=== PATIENT | female | born 1985 | race Caucasian/White ===

== ENCOUNTER 2016-12-31 19:11 | Emergency (ER) | payer SELFPAY ==
--- NOTE | 2016-12-31 21:39 | DIAGNOSTIC IMAGING REPORT ---
PROCEDURE: ABDOMEN/PELVIS WITH CONTRAST CLINICAL INDICATION: ABDOMINAL PAIN TECHNIQUE: 125 ml of Isovue 300 were injected intravenously and axial images were obtained of the abdomen and pelvis with sagittal and coronal reformations. COMPARISON: None. FINDINGS: ABDOMEN: Clear lung bases. Normal sized heart. No hiatal hernia. The liver, gallbladder, adrenal glands, kidneys, pancreas and spleen are normal. The abdominal aorta is normal in its course and caliber. No atherosclerosis. There are no suspicious calcifications, retroperitoneal adenopathy or masses. The stomach , upper bowel loops, and mesentery are normal. Very small fat containing umbilical hernia. No free fluid or inflammation. PELVIS: Involuting dominant follicle on the right ovary. Trace amount of right britta ovarian fluid. The appendix and pelvic small bowel loops are normal. Moderately increased amount of semisolid stool in the colon and rectum. The uterus, urinary bladder, and pelvic vessels are normal. No adenopathy, or pelvic mass. Intact osseous structures. IMPRESSION: 1. Involuting right ovarian follicle with a trace amount of surrounding free fluid. 2. Moderate fecal retention. 3. No evidence of acute process. 4. Findings called to the emergency room. All CT scans at this facility use dose modulation, iterative reconstruction, and/or weight-based dosing when appropriate to reduce radiation dose to as low as reasonably achievable.
--- NOTE | 2016-12-31 21:58 | ED CLINICAL REPORT ---
Clinical Report - Physicians/Mid Levels [facility] [address] [place] [address] 12/31/2016 19:12 Patient: CLARA JIM Time Seen: 19:43; initial patient contact, initial documentation, patient care assumed. Arrived- By private vehicle. Historian- patient. HISTORY OF PRESENT ILLNESS Chief Complaint: ABDOMINAL PAIN. At its maximum, severity described as severe. When seen in the E.D., severity described as severe. Modifying factors. Not worsened by anything. Not relieved by anything. It is described as "pain" and cramping. No radiation. It is described as located in the right lower quadrant and left lower quadrant and in the lower abdomen. This started yesterday. No nausea, loss of appetite, vomiting or diarrhea. No additional abdominal pain. (says pain feels like she is going to have a baby). No recent travel. Similar symptoms previously: None. Recent medical care: The patient was seen recently at another facility in a clinic. ( pt was [facility], sent here for eval). REVIEW OF SYSTEMS No constipation, black stools, hematemesis, difficulty with urination or pain with urination. No urinary frequency, bloody stools, fever, chest pain or difficulty breathing. Currently : G 5. P 5. Last bowel movement- 3 days ago. All systems otherwise negative, except as recorded above. PAST HISTORY See nurses notes. PROBLEMS: Pneumonia. Dental Caries. --19:25 Jackson Ahumada, R.N. ADDITIONAL SURGERIES: Dilatation & Curettage. --19:25 Jackson Ahumada R.N. SOCIAL HISTORY Light tobacco smoker. Heavy alcohol use; consumes liquor daily. History of heavy drug use: methamphetamines, marijuana. No recent travel. Is a local resident. FAMILY HISTORY Negative. ADDITIONAL NOTES The nursing notes have been reviewed with agreement regarding the chief complaint, HPI, ROS, PMH and patient medications and allergies. PHYSICAL EXAM Vital Signs: 12/31/2016 19:17 BP: 141/93. HR: 92. RR: 19. O2 saturation: 100%. Temp: 97.7 F. Pain level now: 10/10. Have been reviewed as normal and appear to be correct. Appearance: Alert. Oriented X3. No acute distress. (pt in position upon entering room and tearful). Eyes: Pupils equal, round and reactive to light. Eyes normal inspection. Neck: Normal inspection. Neck supple. CVS: Normal heart rate and rhythm. Heart sounds normal. Pulses normal. Respiratory: No respiratory distress. Breath sounds normal. Chest nontender. Abdomen: Soft. Mild tenderness in the right lower quadrant, suprapubic area, left lower quadrant and lower abdomen. No guarding, rebound tenderness or Sherman's, obturator or psoas sign present. Bowel sounds normal. No organomegaly. No mass. Tenderness present. Back: Normal inspection. Skin: Skin warm and dry. Normal skin color. No rash. Normal skin turgor. Extremities: Extremities exhibit normal ROM. No lower extremity edema. Neuro: Oriented X 3. No motor deficit. No sensory deficit. LABS, X-RAYS, AND EKG Abdominal CT: . IMPRESSION: 1. Involuting right ovarian follicle with a trace amount of surrounding free fluid. 2. Moderate fecal retention. 3. No evidence of acute process. 4. Findings called to the emergency room. All CT scans at this facility use dose modulation, iterative reconstruction, and/or weight-based dosing when appropriate to reduce radiation dose to as low as reasonably achievable. Electronically Final signed by:Mary Huitron MD 12/31/2016 9:39:39 PM. The study was interpreted by the radiologist and discussed with the radiologist. Interpretation time: 21:40. Laboratory Tests: UA-Culture if indicated: (KASEY: 12/31/2016 20:39) ( MsgRcvd 12/31/2016 21:06) Final results Test Result Flag Units (Reference) URINE COLOR YELLOW URINE APPEARANCE CLEAR URINE GLUCOSE NEGATIVE (NEGATIVE) URINE BILIRUBIN NEGATIVE (NEGATIVE) URINE KETONE NEGATIVE (NEGATIVE) URINE SPECIFIC GRAVITY 1.015 (1.010-1.030) URINE PH 7.0 (5.0-8.0) URINE PROTEIN NEGATIVE (NEGATIVE) URINE UROBILINOGEN 0.2 EU/dL (0.2-1.0) URINE NITRITE NEGATIVE (NEGATIVE) URINE BLOOD TRACE-INTACT (NEGATIVE) URINE LEUK ESTERASE TRACE (NEGATIVE) URINE RBC 0-1 rbc/hpf (0-1) URINE WBC 1-3 wbc/hpf (0-1) URINE EPITHELIAL CELLS 0-1 EPI/hpf (0-5) URINE BACTERIA FEW (1+) (NONE SEEN) URINE COMMENT CULTURE INDICATED URINE CULTURES ARE SET-UP BASED ON THE FOLLOWING CRITERIA:POSITIVE NITRITEPOSITIVE LEUKOCYTE ESTERASEGREATER THAN 10 WHITE BLOOD CELLSMODERATE (2+) OR GREATER BACTERIA Urine: (KASEY: 12/31/2016 20:39) ( ScgRcvd 12/31/2016 20:51) Final results Test Result Flag Units (Reference) URINE NEGATIVE CBC w Diff: (KASEY: 12/31/2016 19:30) ( ScgRcvd 12/31/2016 19:47) Final results Test Result Flag Units (Reference) WHITE BLOOD COUNT 13.2 H K/uL (4.5-11.5) RED BLOOD COUNT 4.62 M/uL (4.00-5.20) HEMOGLOBIN 12.9 gm/dL (12.0-16.0) HEMATOCRIT 38.8 % (36.0-46.0) MEAN CELL VOLUME 84 fL (80-100) MEAN CORPUSCULAR HGB 28 pg (26-34) MEAN CORPUSCULAR HGB CONC 33 g/dL (31-37) RED CELL DISTRIBUTION WIDTH 13.9 % (11.6-14.8) PLATELET COUNT 321 K/uL (150-400) NEUTROPHIL % 70.4 % (50-75) LYMPH % 21.3 L % (25-40) MONO % 5.1 % (3-14) EOSINOPHIL % 2.0 % (0-4) BASOPHIL % 1.2 % (0-2) Urine Drug Screen: (KASEY: 12/31/2016 20:39) ( MsgRcvd 12/31/2016 21:00) Final results Test Result Flag Units (Reference) AMPHETAMINE/METHAMPHETAMINE POSITIVE H (NEGATIVE) BARBITURATE NEGATIVE (NEGATIVE) BENZODIAZEPINE NEGATIVE (NEGATIVE) CANNABINOID POSITIVE H (NEGATIVE) COCAINE NEGATIVE (NEGATIVE) ECSTASY POSITIVE H (NEGATIVE) METHADONE NEGATIVE (NEGATIVE) OPIATE NEGATIVE (NEGATIVE) The urine drug screen is a qualitative screening test fordrug overdose and abuse. All screen results should beconsidered as presumptive.Drugs screened for are as follows:BenzodiazepinesCocaineAmphetamines/MetamphetaminesTHC (Tetrahydrocannabinol)OpiatesBarbituratesEcstasyMethadonePositive results are unconfirmed. For confirmation, notifythe lab for the specimen to be sent to the reference lab.All confirmations must be performed by a differentmethodology.The ingestion of natural herbal and plant productscontaining Ephedra/Ephedra metabolites can produce in urineone or more substances capable of cross reacting withamphetamine/methamphetamine immunoassays. These testsprovide a preliminary result only. A more specificalternative chemical method must be used to obtain aconfirmed analytical result. Ethyl Alcohol: (KASEY: 12/31/2016 19:30) ( MsgRcvd 12/31/2016 20:17) Final results Test Result Flag Units (Reference) ETHYL ALCOHOL <3 L mg/dL (3-10) CMP: (KASEY: 12/31/2016 19:30) ( MsgRcvd 12/31/2016 20:05) Final results Test Result Flag Units (Reference) GLUCOSE 114 H mg/dL (70-110) BUN 13 mg/dL (7-18) CREATININE 1.0 mg/dL (0.6-1.3) Estimated GFR >60 mL/min Estimated GFR- >60 mL/min Note: Persistent reduction over 3 months in eGFR<60 mL/min/1.73 m2 defines CKD. Patients with eGFR values>=60 mL/min/1.73 m2 may also have CKD if evidence ofpersistent proteinuria. Additional information may be foundat www.kidney.org. SODIUM 136 mmol/L (136-145) POTASSIUM 3.2 L mmol/L (3.5-5.1) CHLORIDE 100 mmol/L (98-107) CARBON DIOXIDE 23 mmol/L (21-32) CALCIUM 8.8 mg/dL (8.5-10.1) TOTAL PROTEIN 7.6 g/dL (6.4-8.2) ALBUMIN 3.8 g/dL (3.3-5.0) BILIRUBIN, TOTAL 0.3 mg/dL (0.0-1.0) ALKALINE PHOSPHATASE 93 U/L (46-116) AST (SGOT) 24 U/L (15-37) ALT (SGPT) 39 U/L (12-78) LIPASE 115 U/L (73-393) AMYLASE 37 U/L (25-115) . PROGRESS AND PROCEDURES Course of Care: 20:04 12/31/16. record from reviewed. 12/31/2016 21:49 BP: 141/92. HR: 85. RR: 17. O2 saturation: 100%. Vital Signs: have been reviewed as normal and appear to be correct. Patient counseled in person regarding the patient's stable condition, test results and diagnosis. 21:41. Differential Diagnosis: I considered gastritis, peptic ulcer disease, gastroesophageal reflux disease, acute appendicitis, colon cancer, obstipation, biliary colic, cholecystitis, cholelithiasis, hepatitis, pancreatitis, ureterolithiasis, ovarian cyst, ovarian torsion, , ectopic , pelvic inflammatory disease, pelvic abscess, Mittelschmerz syndrome, endometriosis, cancer and viral syndrome as a possible cause of abdominal pain in this patient. This is a partial list of diagnoses considered. (substance abuse). Above considerations are based on history, physical exam and laboratory data. Differential diagnosis was discussed with patient. Disposition: Discharged home in good and improved condition (21:58). Condition: good and stable. CLINICAL IMPRESSION Acute right lower quadrant, suprapubic and left lower quadrant abdominal pain. Chronic substance abuse- marijuana, methamphetamines. INSTRUCTIONS Warnings: GENERAL WARNINGS: Return or contact your physician immediately if your condition worsens or changes unexpectedly, if not improving as expected, or if other problems arise. SPECIFICALLY, return if you develop pain in the abdomen, fever, the inability to keep fluids down, blood in vomitus, blood in diarrhea, fainting or lightheadedness. Prescription Medications: Zofran 4 mg: Take 1 orally every six hours as needed for nausea/vomiting. Dispense ten (10). No refills. Substitution is permissible. Ultram 50 mg tablets: take 1-2 orally every 6 hours as needed for pain. Dispense twenty (20). No refills. Substitution is permissible. Follow-up: Follow up with your doctor in about two days even if well. Call for an appointment. Summary of care provided to patient. Understanding of the discharge instructions verbalized by patient. (Electronically signed by Awilda Tsang A.R.N.P. 12/31/2016 22:50)
--- NOTE | 2016-12-31 21:58 | ED NURSING NOTES ---
Clinical Report - Nurses [facility] [address] [place] [address] 12/31/2016 19:12 Patient: CLARA JIM TRIAGE Triage time 19:17. Acuity: LEVEL 3. Chief Complaint: ABDOMINAL PAIN. 19:32. Alert. --19:32 Jackson Ahumada R.N. 19:17 12/31/16. BP: 141/93. HR: 92. RR: 19. O2 saturation: 100% on room air. Temp: 97.7 F (oral). Pain level now: 08/20. --19:32 Jackson Ahumada R.N. Weight: 77.1 kg stated. Height/Length: 69 inches Per Patient. BMI: 25.1. --19:25 Jackson Ahumada R.N. Medications None. --19:24 Jackson Ahumada R.N. Medication/allergy information source: the patient. --19:32 Jackson Ahumada R.N. Allergies No Known Drug Allergy. --19:24 Jackson Ahumada R.N. History Arrived by private vehicle. Historian: patient. Accompanied by family. Primary physician (None). This started yesterday. ( Patient reports bilateral lower ABD pain that started yesterday that got very bad about 1500 today - states last BM 3 days ago). 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 PAST MEDICAL HX: Last normal menstrual period- 2--17. Immunizations not up to date. SOCIAL HX: Current every day light tobacco smoker- less than 1/2 a pack per day. Regular alcohol use; consumes four liquor daily. History of drug use. (daily). No recent travel. No infectious disease exposure. ABUSE ASSESSMENT: No report of abuse. FALL RISK ASSESSMENT: Fall risk assessment completed. No fall risk identified. NUTRITIONAL RISK ASSESSMENT: The nutritional risk assessment revealed no deficiencies. FUNCTIONAL ASSESSMENT: Functional assessment: no impairments noted. LEARNING NEEDS ASSESSMENT: The learning needs assessment revealed no barriers. SKIN INTEGRITY ASSESSMENT: Skin integrity risk assessment completed. No skin integrity risk identified. --19:32 Jackson Ahumada R.N. PROBLEMS: Pneumonia. Dental Caries. --19:25 Jackson Ahumada R.N. ADDITIONAL SURGERIES: Dilatation & Curettage. --19:25 Jackson Ahumada R.N. Interventions ID band on patient. To treatment room. --19:32 Jackson Ahumada R.N. PHYSICAL ASSESSMENT 19:28. Ambulatory to room. Patient gowned. GENERAL / NEURO / PSYCH: Alert. Appears in pain. HEENT: Mucous membranes are pink. RESPIRATORY: Respirations not labored. SKIN: Skin is warm and dry. --19:32 Jackson Ahumada R.N. NURSING PROGRESS NOTES 19:18 Patient to restroom. --19:23 Jackson Ahumada R.N. 19:23 Patient unable to collect sample. --19:24 Jackson Ahumada R.N. 19:24. Two patient identifiers checked. Call light placed in reach. Bed placed in lowest position. Brakes of bed on. Patient ready for evaluation- chart flagged. --19:24 Jackson Ahumada R.N. 19:32 12/31/2016 Site #1 started via IV in the right antecubital space with an 18g angiocath, with aseptic technique and good blood return; one attempt. Blood drawn: rainbow set. Labeled in the presence of the patient and sent to the lab. Saline lock flushed with 10 mL saline. --19:37 Jackson Ahumada R.N. 20:09 12/31/2016 Toradol IVP 30 mg given over 2 minute(s) via site #1. Allergies verified and confirmed 5 rights. IV patency established. IV site checked: no pain, redness, or swelling. IV flushed thoroughly pre- and post-medication administration. --20:09 Jackson Ahumada R.N. 20:12 12/31/2016 K-DUR (Potassium Chloride Yani ER) PO 20 meq given. Allergies verified and confirmed 5 rights. --20:12 Jackson Ahumada R.N. 8 fr in/out catheterization. During procedure hand hygiene observed and sterile equipment and aseptic technique used. Return of less than 50 mL yellow-colored clear urine. She tolerated procedure well. Patient ID band checked for patient name and birthdate: patient confirmed. Catheterized urine collected with return of yellow-colored clear urine; sample sent to lab. Specimen labeled in the presence of the patient. Urine test negative. traffic control supervisor check passed. --20:39 Damari Asif R.N. 20:43. Patient transported to [place] by stretcher with tech. --20:43 Jackson Ahumada R.N. 20:56. Patient returned from [place] by stretcher with tech. --20:59 Jackson Ahumada R.N. 21:50. The patient is calm and resting quietly. SKIN: Skin is warm and dry. Skin color within normal limits. --21:50 Jackson Ahumada R.N. 21:49 12/31/16. BP: 141/92. HR: 85. RR: 17. O2 saturation: 100%. --21:50 Jackson Ahumada R.N. DISPOSITION / DISCHARGE 22:43 12/31/2016 Site #1 removed upon discharge. Catheter intact. Pressure dressing applied. --22:43 Ajith Mcleod R.N. Condition at departure: improved. The goals identified in the patient's plan of care were met. Reviewed medication(s) side effects, precautions, dosing and course information. Prescription(s) given to the patient. Patient verbalized understanding. Written instructions provided in Bahraini. The patient was discharged home and accompanied by spouse. She left the Emergency Department ambulatory and via private vehicle. Spouse driving. FALL RISK ASSESSMENT: Fall risk assessment completed. No fall risk identified. --22:44 Ajith Mcleod R.N. 22:43 12/31/16. BP: 142/88. HR: 76. RR: 16. O2 saturation: 99%. Temp: 98.2 F (oral). --22:44 Ajith Mcleod R.N. Departure time: 2245 PM. --22:45 Ajith Mcleod R.N. Locked/Released at 01/01/2017 23:51 by Jackson Ahumada R.N.
--- NOTE | 2016-12-31 21:58 | ED NURSING NOTES ---
Clinical Report - Nurses [facility] [address] [place] [address] 12/31/2016 19:12 Patient: CLARA JIM TRIAGE Triage time 19:17. Acuity: LEVEL 3. Chief Complaint: ABDOMINAL PAIN. 19:32. Alert. --19:32 Jackson Ahumada R.N. 19:17 12/31/16. BP: 141/93. HR: 92. RR: 19. O2 saturation: 100% on room air. Temp: 97.7 F (oral). Pain level now: 08/20. --19:32 Jackson Ahumada R.N. Weight: 77.1 kg stated. Height/Length: 69 inches Per Patient. BMI: 25.1. --19:25 Jackson Ahumada R.N. Medications None. --19:24 Jackson Ahumada R.N. Medication/allergy information source: the patient. --19:32 Jackson Ahumada R.N. Allergies No Known Drug Allergy. --19:24 Jackson Ahumada R.N. History Arrived by private vehicle. Historian: patient. Accompanied by family. Primary physician (None). This started yesterday. ( Patient reports bilateral lower ABD pain that started yesterday that got very bad about 1500 today - states last BM 3 days ago). 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 PAST MEDICAL HX: Last normal menstrual period- 2--17. Immunizations not up to date. SOCIAL HX: Current every day light tobacco smoker- less than 1/2 a pack per day. Regular alcohol use; consumes four liquor daily. History of drug use. (daily). No recent travel. No infectious disease exposure. ABUSE ASSESSMENT: No report of abuse. FALL RISK ASSESSMENT: Fall risk assessment completed. No fall risk identified. NUTRITIONAL RISK ASSESSMENT: The nutritional risk assessment revealed no deficiencies. FUNCTIONAL ASSESSMENT: Functional assessment: no impairments noted. LEARNING NEEDS ASSESSMENT: The learning needs assessment revealed no barriers. SKIN INTEGRITY ASSESSMENT: Skin integrity risk assessment completed. No skin integrity risk identified. --19:32 Jackson Ahumada R.N. PROBLEMS: Pneumonia. Dental Caries. --19:25 Jackson Ahumada R.N. ADDITIONAL SURGERIES: Dilatation & Curettage. --19:25 Jackson Ahumada R.N. Interventions ID band on patient. To treatment room. --19:32 Jackson Ahumada R.N. PHYSICAL ASSESSMENT 19:28. Ambulatory to room. Patient gowned. GENERAL / NEURO / PSYCH: Alert. Appears in pain. HEENT: Mucous membranes are pink. RESPIRATORY: Respirations not labored. SKIN: Skin is warm and dry. --19:32 Jackson Ahumada R.N. NURSING PROGRESS NOTES 19:18 Patient to restroom. --19:23 Jackson Ahumada R.N. 19:23 Patient unable to collect sample. --19:24 Jackson Ahumada R.N. 19:24. Two patient identifiers checked. Call light placed in reach. Bed placed in lowest position. Brakes of bed on. Patient ready for evaluation- chart flagged. --19:24 Jackson Ahumada R.N. 19:32 12/31/2016 Site #1 started via IV in the right antecubital space with an 18g angiocath, with aseptic technique and good blood return; one attempt. Blood drawn: rainbow set. Labeled in the presence of the patient and sent to the lab. Saline lock flushed with 10 mL saline. --19:37 Jackson Ahumada R.N. 20:09 12/31/2016 Toradol IVP 30 mg given over 2 minute(s) via site #1. Allergies verified and confirmed 5 rights. IV patency established. IV site checked: no pain, redness, or swelling. IV flushed thoroughly pre- and post-medication administration. --20:09 Jackson Ahumada R.N. 20:12 12/31/2016 K-DUR (Potassium Chloride Yani ER) PO 20 meq given. Allergies verified and confirmed 5 rights. --20:12 Jackson Ahumada R.N. 8 fr in/out catheterization. During procedure hand hygiene observed and sterile equipment and aseptic technique used. Return of less than 50 mL yellow-colored clear urine. She tolerated procedure well. Patient ID band checked for patient name and birthdate: patient confirmed. Catheterized urine collected with return of yellow-colored clear urine; sample sent to lab. Specimen labeled in the presence of the patient. Urine test negative. control systems engineer check passed. --20:39 Damari Asif R.N. 20:43. Patient transported to [place] by stretcher with tech. --20:43 Jackson Ahumada R.N. 20:56. Patient returned from [place] by stretcher with tech. --20:59 Jackson Ahumada R.N. 21:50. The patient is calm and resting quietly. SKIN: Skin is warm and dry. Skin color within normal limits. --21:50 Jackson Ahumada R.N. 21:49 12/31/16. BP: 141/92. HR: 85. RR: 17. O2 saturation: 100%. --21:50 Jackson Ahumada R.N. DISPOSITION / DISCHARGE 22:43 12/31/2016 Site #1 removed upon discharge. Catheter intact. Pressure dressing applied. --22:43 Ajith Mcleod R.N. Condition at departure: improved. The goals identified in the patient's plan of care were met. Reviewed medication(s) side effects, precautions, dosing and course information. Prescription(s) given to the patient. Patient verbalized understanding. Written instructions provided in Finnish. The patient was discharged home and accompanied by spouse. She left the Emergency Department ambulatory and via private vehicle. Spouse driving. FALL RISK ASSESSMENT: Fall risk assessment completed. No fall risk identified. --22:44 Ajith Mcleod R.N. 22:43 12/31/16. BP: 142/88. HR: 76. RR: 16. O2 saturation: 99%. Temp: 98.2 F (oral). --22:44 Ajith Mcleod R.N. Departure time: 2245 PM. --22:45 Ajith Mcleod R.N. Locked/Released at 01/01/2017 23:51 by Jackson Ahumada R.N.
--- NOTE | 2016-12-31 21:59 | ED ORDER SUMMARY ---
..... Patient: CLARA JIM OrderSheet [facility] VisitID: [id number] [address] [place] [address] 31y, F Registration Date/Time: 12/31/2016 ORDER SHEET Weight: 77.1 kg (stated) Allergies: No Known Drug Allergy GENERAL ORDERS: CBC w Diff Urgent (19:37 12/31/2016 JQuivey R.N. per protocol) (Ack 19:38 LMuller) (20:06 LMuller) CMP Urgent (19:37 12/31/2016 JQuivey R.N. per protocol) (Ack 19:38 LMuller) (20:06 LMuller) Amylase Urgent (19:37 12/31/2016 JQuivey R.N. per protocol) (Ack 19:38 LMuller) (20:06 LMuller) Lipase Urgent (19:37 12/31/2016 JQuivey R.N. per protocol) (Ack 19:38 LMuller) (20:06 LMuller) Urine Urgent (19:37 12/31/2016 JQuivey R.N. per protocol) (Ack 19:38 LMuller) (20:42 LMuller) UA-Culture if indicated Urgent (19:37 12/31/2016 JQuivey R.N. per protocol) (Ack 19:38 LMuller) (20:42 LMuller) NPO (19:37 12/31/2016 JQuivey R.N. per protocol) (19:37 JQuivey R.N.) CT Abd/Pel w Cont (No) (pending) Urgent (20:03 12/31/2016 HBivens A.R.N.P.) (Ack 20:05 LMuller) (20:59 MCampbell) Ethyl Alcohol Urgent (20:05 12/31/2016 HBivens A.R.N.P.) (Ack 20:06 LMuller) (20:06 LMuller) Urine Drug Screen Urgent (20:05 12/31/2016 HBivens A.R.N.P.) (Ack 20:06 LMuller) (20:42 LMuller) MEDICATION ORDERS: K-Dur PO 20 meq (Do not crush or chew, NOW) (20:08 12/31/2016 HBivens A.R.N.P.) (Ack 20:10 JQuivey R.N.) (20:12 JQuivey R.N.) IV FLUIDS: IV Saline Lock (19:37 12/31/2016 NohemiQuivey R.N. per protocol) (19:37 JQuivey R.N.) Toradol IV 30 mg (NOW) (20:03 12/31/2016 HBivens A.R.N.P.) (Ack 20:07 JQuivey R.N.) (20:09 JQuivey R.N.) ORDER SHEET NOTES: [Electronically signed by Awilda Tsang A.R.N.P. (22:50 12/31/2016)] [Electronically signed by Jackson Ahumada R.N. (23:51 01/01/2017)] [Electronically locked/signed by Jackson Ahumada R.N. (23:51 01/01/2017)]
--- NOTE | 2016-12-31 21:59 | ED ORDER SUMMARY ---
..... Patient: CLARA JIM OrderSheet [facility] VisitID: [id number] [address] [place] [address] 31y, F Registration Date/Time: 12/31/2016 ORDER SHEET Weight: 77.1 kg (stated) Allergies: No Known Drug Allergy GENERAL ORDERS: CBC w Diff Urgent (19:37 12/31/2016 JQuivey R.N. per protocol) (Ack 19:38 LMuller) (20:06 LMuller) CMP Urgent (19:37 12/31/2016 JQuivey R.N. per protocol) (Ack 19:38 LMuller) (20:06 LMuller) Amylase Urgent (19:37 12/31/2016 JQuivey R.N. per protocol) (Ack 19:38 LMuller) (20:06 LMuller) Lipase Urgent (19:37 12/31/2016 JQuivey R.N. per protocol) (Ack 19:38 LMuller) (20:06 LMuller) Urine Urgent (19:37 12/31/2016 JQuivey R.N. per protocol) (Ack 19:38 LMuller) (20:42 LMuller) UA-Culture if indicated Urgent (19:37 12/31/2016 JQuivey R.N. per protocol) (Ack 19:38 LMuller) (20:42 LMuller) NPO (19:37 12/31/2016 JQuivey R.N. per protocol) (19:37 JQuivey R.N.) CT Abd/Pel w Cont (No) (pending) Urgent (20:03 12/31/2016 HBivens A.R.N.P.) (Ack 20:05 LMuller) (20:59 MCampbell) Ethyl Alcohol Urgent (20:05 12/31/2016 HBivens A.R.N.P.) (Ack 20:06 LMuller) (20:06 LMuller) Urine Drug Screen Urgent (20:05 12/31/2016 HBivens A.R.N.P.) (Ack 20:06 LMuller) (20:42 LMuller) MEDICATION ORDERS: K-Dur PO 20 meq (Do not crush or chew, NOW) (20:08 12/31/2016 HBivens A.R.N.P.) (Ack 20:10 JQuivey R.N.) (20:12 JQuivey R.N.) IV FLUIDS: IV Saline Lock (19:37 12/31/2016 NohemiQuivey R.N. per protocol) (19:37 JQuivey R.N.) Toradol IV 30 mg (NOW) (20:03 12/31/2016 HBivens A.R.N.P.) (Ack 20:07 JQuivey R.N.) (20:09 JQuivey R.N.) ORDER SHEET NOTES: [Electronically signed by Awilda Tsang A.R.N.P. (22:50 12/31/2016)] [Electronically signed by Jackson Ahumada R.N. (23:51 01/01/2017)] [Electronically locked/signed by Jackson Ahumada R.N. (23:51 01/01/2017)]
--- NOTE | 2017-01-01 23:51 | ED MED RECONCILIATION SUMMARY ---
Patient: CLARA JIM Medication Reconciliation Report [facility] VisitID: [id number] [address] [place] [address] 31y, F Registration Date/Time: 12/31/2016 Weight: 77.1 kg Height/Length: 69 in. BMI: 25.1 ALLERGIES: No Known Drug Allergy The patient's Home Medications are listed below: NONE. The source(s) of the original Home Medication information: patient The following Medications were given to the patient in the Emergency Department: Toradol [IVP] IVP 30 mg, administered: 12/31/2016 8:09:00 PM K-DUR [PO] PO 20 meq, administered: 12/31/2016 8:12:00 PM The following Medications were prescribed to the patient: Zofran 4 mg: Take 1 orally every six hours as needed for nausea/vomiting. Dispense ten (10). No refills. Substitution is permissible. -- Awilda Tsang A.R.N.P. Ultram 50 mg tablets: take 1-2 orally every 6 hours as needed for pain. Dispense twenty (20). No refills. Substitution is permissible. -- Awilda Tsang A.R.N.P.
--- NOTE | 2017-01-01 23:51 | ED DISCHARGE INSTRUCTIONS ---
Patient: CLARA JIM General Instructions [facility] VisitID: [id number] [address] [place] [address] 31y, F Registration Date/Time: 12/31/2016 Acute right lower quadrant, suprapubic and left lower quadrant abdominal pain. Chronic substance abuse- marijuana, methamphetamines. INSTRUCTIONS Warnings: GENERAL WARNINGS: Return or contact your physician immediately if your condition worsens or changes unexpectedly, if not improving as expected, or if other problems arise. SPECIFICALLY, return if you develop pain in the abdomen, fever, the inability to keep fluids down, blood in vomitus, blood in diarrhea, fainting or lightheadedness. Prescription Medications: Zofran 4 mg: Take 1 orally every six hours as needed for nausea/vomiting. Dispense ten (10). No refills. Substitution is permissible. Ultram 50 mg tablets: take 1-2 orally every 6 hours as needed for pain. Dispense twenty (20). No refills. Substitution is permissible. Follow-up: Follow up with your doctor in about two days even if well. Call for an appointment. Summary of care provided to patient. Understanding of the discharge instructions verbalized by patient. ADDITIONAL INFORMATION Abdominal Pain, Unknown Cause (Female) The exact cause of your abdominal (stomach) pain is not certain. This does not mean that this is something to worry about, or the right tests were not done. Everyone likes to know the exact cause of the problem, but sometimes with abdominal pain, there is no clear-cut cause, and this could be a good thing. The good news is that your symptoms can be treated, and you will feel better. Your condition does not seem serious now; however, sometimes the signs of a serious problem may take more time to appear. For this reason,it is important for you to watch for any new symptoms, problems,or worsening of your condition. Over the next few days, the abdominal pain may come and go, or be continuous. Other common symptoms can include nausea and vomiting. Sometimes it can be difficult to tell if you feel nauseous, you may just feel bad and not associate that feeling with nausea. Constipation, diarrhea, and a fever may go along with the pain. The pain may continue even if treated correctly over the following days. Depending on how things go, sometimes the cause can become clear and may require further or different treatment. Additional evaluations, medications, or tests may be needed. Home care Your health care provider may prescribe medications for pain, symptoms, or an infection. Follow the health care provider's instructions for taking these medications. General care Rest until your next exam. No strenuous activities. Try to find positions that ease discomfort. A small pillow placed on the abdomen may help relieve pain. Something warm on your abdomen (such as a heating pad) may help, but be careful not to burn yourself. Diet Do not force yourself to eat, especially if having cramps, vomiting, or diarrhea. Water is important so you do not get dehydrated. Soup may also be good. Sports drinks may also help, especially if they are not too acidic. Make sure you don't drink sugary drinks as this can make things worse. Take liquids in small amounts. Do not guzzle them. Caffeine sometimes makes the pain and cramping worse. Avoid dairy products if you have vomiting or diarrhea. Don't eat large amounts at a time. Wait a few minutes between bites. Eat a diet low in fiber (called a low-residue diet). Foods allowed include refined breads, white rice, fruit and vegetable juices without pulp, tender meats. These foods will pass more easily through the intestine. Avoid whole-grain foods, whole fruits and vegetables, meats, seeds and nuts, fried or fatty foods, dairy, alcohol and spicy foods until your symptoms go away. Follow-up care Follow up with your health care provider as instructed, or if your pain does not begin to improve in the next 24 hours. When to seek medical care Seek prompt medical care if any of the following occur: Pain gets worse or moves to the right lower abdomen New or worsening vomiting or diarrhea Swelling of the abdomen Unable to pass stool for more than three days Fever of 100.4F (38C) or higher, or as directed by your healthcare provider. Blood in vomit or bowel movements (dark red or black color) Jaundice (yellow color of eyes and skin) Weakness, dizziness Chest, arm, back, neck or jaw pain Unexpected vaginal bleeding or missed period Call 911 Call emergency services if any of the following occur: Trouble breathing Confusion Fainting or loss of consciousness Rapid heart rate Seizure Abdominal Pain,Possible Appendicitis [Repeat Exam, Female] Based on your visit today, the exact cause of your abdominal (stomach) pain is not certain. However, you do have some of the early signs of APPENDICITIS. Early in an appendix infection the symptoms can be similar to a simple "stomach ache" or "stomach flu". Therefore, the diagnosis can be hard to make. Since an appendix infection is a serious condition, it is important to know if this is the cause of your symptoms. WAITING for more time to pass and repeating the exam is the best way to find out whether you have appendicitis. Within the next 12-24 hours the cause of your stomach pain should become clear. It is important for you to watch for any new symptoms or worsening of your condition. (See below). Home Care: Rest until your next exam. No strenuous activities. Eat a diet low in fiber (called a low-residue diet). Foods allowed include refined breads, white rice, fruit and vegetable juices without pulp, tender meats. These foods will pass more easily through the intestine. Avoid whole-grain foods, whole fruits and vegetables, meats, seeds and nuts, fried or fatty foods, dairy, alcohol and spicy foods until your symptoms go away. In some cases, you may be asked not to eat or drink anything until you are re-examined. Return for another exam exactly as directed. Follow Up with your doctor or this facility as directed. Get Prompt Medical Attention if any of the following occur: Pain gets worse or moves to the right lower abdomen New or worsening vomiting or diarrhea Swelling of the abdomen Unable to pass stool for more than three days Fever of 100.4F (38C) or higher, or as directed by your healthcare provider Blood in vomit or bowel movements (dark red or black color) Weakness, dizziness or fainting Unexpected vaginal bleeding Drug Abuse Use and abuse of such drugs as marijuana, amphetamines (speed, crank), cocaine, heroin or prescription pain medicines (Vicodin, codeine), sedatives and sleeping pills (Valium, Klonopin), PCP, mescaline and LSD may lead to addiction or dependence. Once this occurs, you are at greater risk for any of the following: Craving for the drug and unable to stop using the drug even though you think you want to stop (psychological dependence) Drug withdrawal symptoms if you stop taking the drug (physical dependence) Loss of your job or your family Arrest, conviction and fdc sentence for possession of an illegal substance or for driving under the influence of such a substance Accidental injuries to yourself or others while you are under the influence of the drug (in a car or at home). HIV infection (much greater risk if you use IV drugs) Other sexually transmitted diseases (herpes, chlamydia, gonorrhea and others) Severe and fatal infection of the heart valves (if you use IV drugs) Stroke, heart attack, hepatitis B or C, kidney failure from overdose Home Care: Admit you have a drug problem. Ask for help from your family and close friends. Seek professional help. This could be in the form of individual psychotherapy or counseling or an outpatient, inpatient, or residential drug treatment program. Join a self-help group for drug abuse. Avoid friends who abuse drugs themselves or tempt you to continue abusing drugs. Eat a balanced diet and begin a regular exercise program. Follow Up with your doctor or as advised by our staff. Contact one of the resources below for help. National [place] on Alcoholism and Drug Dependence www.ncadd.org 098-541-OLEN Narcotics Anonymous www.na.org 645-954-2784 National Alcohol and Substance Abuse Information Center (for referral to treatment programs) www.[employer] 818-822-3175 Get Prompt Medical Attention if any of the following occur: Agitation, anxiety, unable to sleep Unintended weight loss (more than 10 to 15 pounds over 3 months) Seizure Chest pain Fever of 100.4F (38C) or higher, or as directed by your healthcare provider Excess drowsiness or inability to be awakened Shortness of breath Slow breathing under 8 breaths per minute Cough with colored sputum Redness, swelling or tenderness at an injection site Ondansetron Oral disintegrating tablet What is this medicine? ONDANSETRON (on LUIS DANIEL se vidhi) is used to treat nausea and vomiting caused by chemotherapy. It is also used to prevent or treat nausea and vomiting after surgery. How should I use this medicine? These tablets are made to dissolve in the mouth. Do not try to push the tablet through the foil backing. With dry hands, peel away the foil backing and gently remove the tablet. Place the tablet in the mouth and allow it to dissolve, then swallow. While you may take these tablets with water, it is not necessary to do so. Talk to your investigations chief regarding the use of this medicine in children. Special care may be needed. What side effects may I notice from receiving this medicine? Side effects that you should report to your doctor or health manager critical care unit as soon as possible: allergic reactions like skin rash, itching or hives, swelling of the face, lips, or tongue breathing problems dizziness fast or irregular heartbeat feeling faint or lightheaded, falls fever and chills swelling of the hands and feet tightness in the chest Side effects that usually do not require medical attention (report to your doctor or health manager critical care unit if they continue or are bothersome): constipation or diarrhea headache What may interact with this medicine? Do not take this medicine with any of the following medications: -apomorphine -cisapride -dofetilide -dronedarone -pimozide -thioridazine -ziprasidone This medicine may also interact with the following medications: -carbamazepine -phenytoin -rifampicin -tramadol -other medicines that prolong the QT interval (cause an abnormal heart rhythm) What if I miss a dose? If you miss a dose, take it as soon as you can. If it is almost time for your next dose, take only that dose. Do not take double or extra doses. Where should I keep my medicine? Keep out of the reach of children. Store between 2 and 30 degrees C (36 and 86 degrees F). Throw away any unused medicine after the expiration date. What should I tell my health care provider before I take this medicine? They need to know if you have any of these conditions: heart disease history of irregular heartbeat liver disease low levels of magnesium or potassium in the blood an unusual or allergic reaction to ondansetron, granisetron, other medicines, foods, dyes, or preservatives or trying to get breast-feeding What should I watch for while using this medicine? Check with your doctor or health manager critical care unit as soon as you can if you have any sign of an allergic reaction. Tramadol Hydrochloride Oral tablet What is this medicine? TRAMADOL (TRA ma dole) is a pain reliever. It is used to treat moderate to severe pain in adults. How should I use this medicine? Take this medicine by mouth with a full glass of water. Follow the directions on the prescription label. If the medicine upsets your stomach, take it with food or milk. Do not take more medicine than you are told to take. Talk to your investigations chief regarding the use of this medicine in children. Special care may be needed. What side effects may I notice from receiving this medicine? Side effects that you should report to your doctor or health manager critical care unit as soon as possible: allergic reactions like skin rash, itching or hives, swelling of the face, lips, or tongue breathing difficulties, wheezing confusion itching light headedness or fainting spells redness, blistering, peeling or loosening of the skin, including inside the mouth seizures Side effects that usually do not require medical attention (report to your doctor or health manager critical care unit if they continue or are bothersome): constipation dizziness drowsiness headache nausea, vomiting What may interact with this medicine? Do not take this medicine with any of the following medications: MAOIs like Carbex, Eldepryl, Marplan, Nardil, and Parnate This medicine may also interact with the following medications: alcohol or medicines that contain alcohol antihistamines benzodiazepines bupropion carbamazepine or oxcarbazepine clozapine cyclobenzaprine digoxin furazolidone linezolid medicines for depression, anxiety, or psychotic disturbances medicines for migraine headache like almotriptan, eletriptan, frovatriptan, naratriptan, rizatriptan, sumatriptan, zolmitriptan medicines for pain like pentazocine, buprenorphine, butorphanol, meperidine, nalbuphine, and propoxyphene medicines for sleep muscle relaxants naltrexone phenobarbital phenothiazines like perphenazine, thioridazine, chlorpromazine, mesoridazine, fluphenazine, prochlorperazine, promazine, and trifluoperazine procarbazine warfarin What if I miss a dose? If you miss a dose, take it as soon as you can. If it is almost time for your next dose, take only that dose. Do not take double or extra doses. Where should I keep my medicine? Keep out of the reach of children. Store at room temperature between 15 and 30 degrees C (59 and 86 degrees F). Keep container tightly closed. Throw away any unused medicine after the expiration date. What should I tell my health care provider before I take this medicine? They need to know if you have any of these conditions: brain tumor depression drug abuse or addiction head injury if you frequently drink alcohol containing drinks kidney disease or trouble passing urine liver disease lung disease, asthma, or breathing problems seizures or epilepsy suicidal thoughts, plans, or attempt; a previous suicide attempt by you or a family member an unusual or allergic reaction to tramadol, codeine, other medicines, foods, dyes, or preservatives or trying to get breast-feeding What should I watch for while using this medicine? Tell your doctor or health manager critical care unit if your pain does not go away, if it gets worse, or if you have new or a different type of pain. You may develop tolerance to the medicine. Tolerance means that you will need a higher dose of the medicine for pain relief. Tolerance is normal and is expected if you take this medicine for a long time. Do not suddenly stop taking your medicine because you may develop a severe reaction. Your body becomes used to the medicine. This does NOT mean you are addicted. Addiction is a behavior related to getting and using a drug for a non-medical reason. If you have pain, you have a medical reason to take pain medicine. Your doctor will tell you how much medicine to take. If your doctor wants you to stop the medicine, the dose will be slowly lowered over time to avoid any side effects. You may get drowsy or dizzy. Do not drive, use machinery, or do anything that needs mental alertness until you know how this medicine affects you. Do not stand or sit up quickly, especially if you are an older patient. This reduces the risk of dizzy or fainting spells. Alcohol can increase or decrease the effects of this medicine. Avoid alcoholic drinks. You may have constipation. Try to have a bowel movement at least every 2 to 3 days. If you do not have a bowel movement for 3 days, call your doctor or health manager critical care unit. Your mouth may get dry. Chewing sugarless gum or sucking hard candy, and drinking plenty of water may help. Contact your doctor if the problem does not go away or is severe. You have been given the following additional information: Abdominal Pain, Unknown Cause, (Female) Abdominal Pain, Possible Appendicitis (Female) Drug Abuse Ondansetron Oral disintegrating tablet Tramadol Hydrochloride Oral tablet (Electronically signed by Awilda Tsang A.R.N.P. 12/31/2016 22:50)
--- NOTE | 2017-01-01 23:51 | ED MAR SUMMARY ---
..... Medication Administration Record [facility] [address] [place] [address] Patient: CLARA JIM Visit ID: [id number] 31y, F Weight: 77.1 kg Height/Length: 69 in BMI: 25.1 ALLERGIES: No Known Drug Allergy Given 20:09 12/31/2016 Jackson Ahumada, R.N. Medication Administered: TORADOL [IVP], Dose: 30 mg IVP over 2 minute(s), Site: #1 right AC. Medication Ordered: Toradol IV 30 mg (NOW). Given 20:12 12/31/2016 Jackson Ahumada, R.N. Medication Administered: K-DUR [PO] (POTASSIUM CHLORIDE JANE ER), Dose: 20 meq PO. Medication Ordered: K-Dur PO 20 meq (Do not crush or chew, NOW).
--- NOTE | 2017-01-01 23:51 | ED MAR SUMMARY ---
..... Medication Administration Record [facility] [address] [place] [address] Patient: CLARA JIM Visit ID: [id number] 31y, F Weight: 77.1 kg Height/Length: 69 in BMI: 25.1 ALLERGIES: No Known Drug Allergy Given 20:09 12/31/2016 Jackson Ahumada, R.N. Medication Administered: TORADOL [IVP], Dose: 30 mg IVP over 2 minute(s), Site: #1 right AC. Medication Ordered: Toradol IV 30 mg (NOW). Given 20:12 12/31/2016 Jackson Ahumada, R.N. Medication Administered: K-DUR [PO] (POTASSIUM CHLORIDE JANE ER), Dose: 20 meq PO. Medication Ordered: K-Dur PO 20 meq (Do not crush or chew, NOW).
--- NOTE | 2017-01-01 23:51 | ED MED RECONCILIATION SUMMARY ---
Patient: CLARA JIM Medication Reconciliation Report [facility] VisitID: [id number] [address] [place] [address] 31y, F Registration Date/Time: 12/31/2016 Weight: 77.1 kg Height/Length: 69 in. BMI: 25.1 ALLERGIES: No Known Drug Allergy The patient's Home Medications are listed below: NONE. The source(s) of the original Home Medication information: patient The following Medications were given to the patient in the Emergency Department: Toradol [IVP] IVP 30 mg, administered: 12/31/2016 8:09:00 PM K-DUR [PO] PO 20 meq, administered: 12/31/2016 8:12:00 PM The following Medications were prescribed to the patient: Zofran 4 mg: Take 1 orally every six hours as needed for nausea/vomiting. Dispense ten (10). No refills. Substitution is permissible. -- Awilda Tsang A.R.N.P. Ultram 50 mg tablets: take 1-2 orally every 6 hours as needed for pain. Dispense twenty (20). No refills. Substitution is permissible. -- Awilda Tsang A.R.N.P.
== END 2016-12-31 22:45 | disposition home or self-care (01) ==
LOC: ED SRH 19:11
DX: R10.31 Right lower quadrant pain (principal); R10.32 Left lower quadrant pain; R10.2 Pelvic and perineal pain; F12.10 Cannabis abuse, uncomplicated; F15.10 Other stimulant abuse, uncomplicated
CPT/HCPCS: 81460; 90004; 90100; 90469; 92010; 92235; 92530; 92760; 92761; 92762; 92763; 92764; 92765; 92766; 92767; 93070; 95059